=== PATIENT | male | born 1970 | race Caucasian/White ===

== ENCOUNTER → 2023-04-26 11:13 | Outpatient (REF) | payer OTHER, SELFPAY | LOC: DHCBS HW 11:13 | PROVIDERS: ATTENDING PHYSICIAN Nuclear Medicine Nuclear Cardiology; FAMILY PHYSICIAN Family Medicine | DX: I42.9 Cardiomyopathy, unspecified (principal); I50.22 Chronic systolic (congestive) heart failure; I45.10 Unspecified right bundle-branch block | CPT/HCPCS: 93306 ==